=== PATIENT | female | born 1985 | race Caucasian/White ===

== ENCOUNTER 2022-10-19 09:04 | Outpatient (CLI) | payer OTHER, SELFPAY ==
[2022-10-19 12:53] LABS: Albumin* 4.6 g/dL (3.3-5.0); Chloride* 106 mmol/L (96-114)
[2022-10-19 12:54] LABS: Potassium* 4.7 mmol/L (3.6-5.1); Sodium* 140 mmol/L (135-149)
[2022-10-19 12:56] LABS: Bilirubin Total* 0.6 mg/dL (0.1-1.5); Carbon Dioxide* 29 mmol/L (20-32); Cholesterol* 186 mg/dL (90-199); Creatinine* 0.7 mg/dL (0.5-1.5); Estimated Glomerular Filt Rate 114 ml/min; Total Protein* 7.5 g/dL (6.0-8.3)
[2022-10-19 12:57] LABS: Alanine Aminotransferase* 20 U/L (4-35); Alkaline Phosphatase* 71 U/L (40-150); Aspartate Amino Transferase* 25 U/L (12-35); Blood Urea Nitrogen* 17 mg/dL (5-24); Glucose* 89 mg/dL (60-115); Triglycerides* 59 mg/dL (40-149)
[2022-10-19 12:58] LABS: HDL Cholesterol* 69 mg/dL (>=50); LDL Cholesterol Calculated 105 mg/dL (<100)
[2022-10-19 13:44] LABS: Vitamin B12* 521 pg/mL (243-894)
== END 2022-10-19 09:05 | disposition home or self-care (01) ==
PROVIDERS: PCP Family Medicine; Visit Provider Family Medicine
DX: Z01.419 Encounter for gynecological examination (general) (routine) without abnormal findings (principal); R53.83 Other fatigue; E66.3 Overweight; Z13.6 Encounter for screening for cardiovascular disorders
CPT/HCPCS: 80053; 80061; 82607; 84443